=== PATIENT | female | born 1990 | race Hispanic/Latino ===

== ENCOUNTER 2017-03-01 07:24 | Inpatient (IN) | payer OTHER ==
[2017-03-01] MEDS: Lactated Ringer's 2,000 ML IV ONE ×2 (08:20→09:25)
[2017-03-01] MEDS ORDERED: ceFAZolin 1 GM in Sodium Chloride 0.9% 100 ML IVPB ONE (08:23)
[2017-03-01 08:24] VITALS: BMI 25.8
[2017-03-01 08:40] LABS: BASO # 0.1 K/uL (0.0-0.2); EOS # 0.1 K/uL (0.0-0.7); EOS % 0.8 % (0.0-4.0); HEMATOCRIT 38.5 % (34.0-47.0); LYMPH # 1.6 K/uL (1.0-4.3); LYMPH % 14.6 % (20.0-40.0); MEAN CELL VOLUME 90.3 fl (81.0-99.0); MEAN CORPUSCULAR HEMOGLOBIN 29.6 pg (27.0-31.0); MEAN CORPUSCULAR HGB CONC 32.8 g/dL (33.0-37.0); MEAN PLATELET VOLUME 9.9 fl (7.2-11.7); MONO # 0.8 K/uL (0.0-0.8); MONO % 7.4 % (0.0-10.0); NEUT # 8.2 K/uL (1.8-7.0); NEUT % 76.2 % (50.0-75.0); RED CELL DISTRIBUTION WIDTH 14.8 % (11.5-14.5); WHITE BLOOD COUNT 10.7 K/uL (4.8-10.8)
[2017-03-01] MEDS ORDERED: Oxytocin 30 units/LR 500ML 500 ML IV ONE ×2 (09:10→13:32)
--- NOTE | 2017-03-01 10:24 | HP ---
HISTORY OF PRESENT ILLNESS: This is a 26-year-old -0-0-1 at 38 weeks and 5 days today with an EDC of 03/10/2017 by LMP, who presents to labor and delivery in labor with a history of a previous section; declines . The patient reports that she had painful contractions that started at 2 a.m. She denies leaking of fluid and reports a little blood. The patient reports positive movement. She had her care w/ [facility] with Drs. Zhu and Daryl. PAST MEDICAL HISTORY: Healthy. MEDICATIONS: vitamins. ALLERGIES: No known drug allergies. PAST SURGICAL HISTORY: x 1 on 05/2014 and she had a tonsillectomy in 1997. GYNECOLOGICAL HISTORY: Monthly periods. The patient denies any history of any STDs or any abnormal Pap smears. SOCIAL HISTORY: The patient denies tobacco, alcohol, and illicit drug use. FAMILY HISTORY: Noncontributory. OBSTETRICAL HISTORY: On 06/15/2014 the patient underwent a primary section of a female weighing 6 pounds due to failure to descend. LABS: Varicella zoster virus is low; nonimmune. Blood type is A positive. Antibody screen negative. HIV nonreactive. Hemoglobin electrophoresis is within normal limits. Urine culture was no growth. Syphilis is nonreactive. Rubella is positive. Hepatitis B surface antigen is negative. Panorama, done on 08/29/2016, is low risk and male infant. On 09/28, maternal serum alpha fetoprotein which was negative. On 12/20/2016 glucose was 102, HIV was nonreactive and her RPR was nonreactive. On 02/14/2017 , group B strep was negative. PHYSICAL EXAMINATION: VITAL SIGNS: Afebrile. Vital signs stable. GENERAL: The patient appears uncomfortable, having contractions. ABDOMEN: Soft, nontender, gravid. EXTREMITIES: Nontender. VAGINAL: 4-5 cm, 75% effaced and -1 station around 8:45 per the RN. External monitoring: the baseline is about 120s with moderate variability and positive accelerations. Tocodynamometer: Contractions about every 2 minutes ASSESSMENT AND PLAN: This is a 26-year-old 2, para 1, 0-0-1 at 38 weeks and 5 days with a history of a previous section, in labor; declines vaginal after section. The plan is a repeat section. The plan was discussed with the patient and her . Risks, benefits, alternatives were discussed with the patient. Consents were signed and all questions were answered. Silvana Cherry MD cc: [id number] TT: 03/01/2017 10:23:09 marcellus HARRIS
[2017-03-01] MEDS ORDERED: Oxycodone/Acetaminophen 5/325 mg Tab PO PRN ×3 (11:43→14:21)
[2017-03-01] MEDS ORDERED: DiphenhydrAMINE 50 mg/ml Inj IVP PRN ×2 (11:44→14:21)
[2017-03-01] MEDS ORDERED: Naloxone 0.4 mg/ml Inj (Adult) IVP PRN ×2 (11:44→14:21)
--- NOTE | 2017-03-01 11:55 | OBDS ---
DELIVERY PERSONNEL Delivery Doctor: Yvette Cherry MD Rn Ccu: Mary Elliott RN Anesthesiologist: Khadra Peralta MD MATERNAL INFORMATION Delivery Anesthesia: Spinal Medications in Delivery: 30 units pitocin in 500 ml lr Estimated Blood Loss (ml): 700 Placenta Cultured: No Maternal Complications: None Provider Comments: Pre-op dx: 26 yo at 38+5 w/ previous c/s, in labor, declined Post-op dx: Same Procedure: Repeat low transverse ceasrean section Surgeon: Jo Ann Hackler Doll Wigs: Dr. Inman, the hospitalist Anesthesiologist: Dr. Peralta Anesthesia: Spinal Findings: Viable male infant delivered though clear fluid at 10:37am, Apgars 9 and 9, Wt 9#1, 4105 gms, nl appearing uterus, tubes, and ovaries EBL: 700 mL ComplicationsL: None LABOR SUMMARY EDC: 03/10/2017 00:00 No. Babies in Womb: 1 Attempted: No Labor Anesthesia: Intrathecal LABOR INFORMATION Reason for Induction: Not Applicable Onset of Labor: 03/01/2017 02:00 Oxytocin: N/A Group B Beta Strep: Negative Antibiotics # of Doses: 1 Antibiotics Time of Last Dose: 1010 Steroids Given: None Reason Steroids Not Administered: Not Applicable MEMBRANES Membranes Rupture Method: Artificial Rupture of Membranes: 03/01/2017 10:36 Length of Rupture (hrs): 0.02 Amniotic Fluid Color: Clear Amniotic Fluid Amount: Moderate Amniotic Fluid Odor: Normal STAGES OF LABOR Stage 3 hrs: 0 Stage 3 min: 1 Total Time in Labor hrs: 8 Total Time in Labor min: 38 VAGINAL DELIVERY Episiotomy: None Laceration Extension: N/A Laceration Type: None Laceration Repair: Not Applicable Sponge Count Correct: N/A Sharps Count Correct: N/A CSECTION DELIVERY Primary Indication: Repeat Elective Secondary Indication: Other Other Secondary Indication: Labor CSection Urgency: Elective CSection Incidence: Repeat Labor: Labor Elective: Elective CSection Incision: Lower Uterine Transverse BABY A INFORMATION Delivery Date/Time: 03/01/2017 10:37 Method of Delivery: Born in Route : No : N/A Forceps: N/A Vacuum Extraction: N/A Shoulder Dystocia : No SHOULDER DYSTOCIA BABY A Delivery Date/Time: 03/01/2017 10:37 PRESENTATION/POSITION BABY A Presentation: Cephalic Cephalic Presentation: Vertex Vertex Position: Left Occipital Anterior Breech Presentation: N/A PLACENTA INFORMATION BABY A Placenta Delivery Time : 03/01/2017 10:38 Placenta Method of Delivery: Manual Removal Placenta Status: Delivered SCORES BABY A Heart Rate 1 min: >100 bpm Resp Effort 1 min: Good Cry Reflex Irritability 1 min: Cough or Sneeze or Pulls Away Muscle Tone 1 min: Active Motion Color 1 min: Body [place], Extremities Blue SCORE 1 MIN: 9 Heart Rate 5 min: >100 bpm Resp Effort 5 min: Good Cry Reflex Irritability 5 min: Cough or Sneeze or Pulls Away Muscle Tone 5 min: Active Motion Color 5 min: Body [place], Extremities Blue SCORE 5 MIN: 9 INFANT INFORMATION BABY A Gestational Age at Delivery: 38.5 Gestational Status: Term Infant Outcome : Liveborn Infant Condition : Stable Sex: Male IDENTIFICATION/MEDS BABY A ID Band Number: [id number] ID Band Location: Left Leg; Left Arm WEIGHT/LENGTH BABY A Infant Birthweight (gms): 4105 Infant Weight (lb): 9 Infant Weight (oz): 1 Infant Length Inches: 22.00 Length cms: 55.9 CORD INFORMATION BABY A No. Cord Vessels: 3 Nuchal Cord : N/A Cord Blood Taken: Yes Infant Suction: Mouth; Nose ASSESSMENT BABY A Complications: None Physical Findings at Delivery: Within Normal Limits Infant Respirations: Appears Normal Board Certified Behavioral Analyst/ALS Called : No Infant Care By: Dr Garcia/Alie Ramirez Transferred To: [facility]
--- NOTE | 2017-03-01 12:24 | OP ---
PROCEDURE DATE: 03/01/2017 PREOPERATIVE DIAGNOSIS: This is a 26-year-old D2G1-3-8-9 at 38 weeks and 5 days with a previous section in labor, declines vaginal after . POSTOPERATIVE DIAGNOSIS: This is a 26-year-old J3U3-4-4-7 at 38 weeks and 5 days with a previous section in labor, declines vaginal after . PROCEDURE: A repeat low transverse section. SURGEON: Silvana Cherry MD. REPAIRER VENEER SHEET: Dr. Candi Inman, the hospitalist. Dr. Inman was the surgical aides teacher and participated in the surgery for the entire duration of the case. She helped create exposure. She also helped maintain hemostasis, operated throughout the case on the side of the patient that was across from her and assisted in the delivery of the infant by applying fundal pressure. This case could not have been completed without her assistance. ANESTHESIOLOGIST: Ernesto Peralta DO. ANESTHESIA: Spinal. FINDINGS: A viable male infant delivered through clear fluid at 10:37 a.m. Apgars were 9 and 9 at 1 and 5 minutes respectively. The weight was 9 pounds 1 ounce or 4105 grams. Normal-appearing uterus, tubes, and ovaries. ESTIMATED BLOOD LOSS : 700 mL. DESCRIPTION OF PROCEDURE: The patient was taken to the operating room where spinal anesthesia was placed. A Cunha was placed in the bladder. She was then prepped and draped in normal sterile fashion in the dorsal supine position with a leftward tilt. A time-out was done. The spinal was tested and found to be adequate. Initially, the keloid scar from the previous section was cut out using a knife followed by a Bovie, as it was held up with an Allis clamp. The incision was then carried through to the underlying layer of fascia with the Bovie. The fascia was incised in the midline, and the incision was extended laterally with the Bovie over a Lety. The inferior aspect of the fascial incision was then grasped with Dany clamps, elevated, and the underlying rectus muscles were dissected off bluntly and with the Bovie. Attention was then turned to the superior aspect of this incision, which in a similar fashion was grasped, tented up with the Dany clamps, and the rectus muscles were dissected off bluntly and with the Bovie. The rectus muscles were then in the midline. The peritoneum was incidentally entered as the rectus muscles were dissected off the fascia. The peritoneal incision was then extended superiorly and inferiorly with good visualization of the bladder. The bladder blade was then inserted, and the vesicouterine peritoneum was identified , grasped with the pickups and entered sharply with Metzenbaum scissors. This incision was then extended laterally, and the bladder flap was created digitally. The bladder blade was then reinserted, and lower uterine segment was incised in transverse fashion with the scalpel. The uterine incision was then extended in a cephalocaudad direction digitally. The bladder blade was removed, and the infant's head delivered atraumatically. The nose and mouth were suctioned with bulb suction. The cord was clamped and cut. The infant was handed off to the waiting molded candles wicker. Cord blood was then collected. The placenta was then delivered, as the uterus was massaged. The uterus was then exteriorized and cleared of all clots and debris with a dry sponge curettage. The uterine incision was repaired with 0 Vicryl in a running locked fashion. A few interrupted stitches were then placed in the incision and for hemostasis. The abdomen was then well- irrigated. The uterus was then returned to the abdomen. The gutters were cleared of all clots. The uterus incision was reexamined and found to be hemostatic. The peritoneum was then closed with 0 chromic. Two interrupted stitches of 0 chromic were then placed to reapproximate the pyramidalis muscle. The fascia was then reapproximated with 0 Vicryl in a running fashion. Subcutaneous fat was well-irrigated. The Bovie was applied to small bleeders. The space of the fat was then closed with a running stitch of 2-0 plain gut. The skin was then closed in a subcuticular fashion using 4-0 Monocryl. The patient tolerated the procedure well. Sponge, lap, and needle counts were correct. The patient received 1 gram of Ancef prior to the procedure. The patient was taken to the recovery room in stable condition. Silvana Cherry MD cc: [id number] TT: 03/01/2017 12:24:04 [facility] # [id number] jn MTDD
[2017-03-01] MEDS ORDERED: Lactated Ringer's 1,000 ML IV SCH (13:45)
[2017-03-01] MEDS ORDERED: Simethicone 80 mg Chewtab PO SCH (16:00)
[2017-03-01] MEDS: Lactated Ringer's 1,000 ML IV SCH (16:30)
[2017-03-01] MEDS: Simethicone 80 mg Chewtab PO SCH ×2 (16:57→22:12)
[2017-03-02] MEDS: Lactated Ringer's 1,000 ML IV SCH ×2 (02:08→14:00)
[2017-03-02] MEDS: Simethicone 80 mg Chewtab PO SCH ×5 (04:57→22:29)
[2017-03-02 08:23] LABS: BASO % 0.4 % (0.0-2.0); EOS # 0.1 K/uL (0.0-0.7); EOS % 0.6 % (0.0-4.0); HEMATOCRIT 35.4 % (34.0-47.0); LYMPH # 1.2 K/uL (1.0-4.3); LYMPH % 8.9 % (20.0-40.0); MEAN CELL VOLUME 90.2 fl (81.0-99.0); MEAN CORPUSCULAR HEMOGLOBIN 29.5 pg (27.0-31.0); MEAN CORPUSCULAR HGB CONC 32.7 g/dL (33.0-37.0); MEAN PLATELET VOLUME 9.7 fl (7.2-11.7); MONO # 1.1 K/uL (0.0-0.8); NEUT # 11.3 K/uL (1.8-7.0); NEUT % 82.1 % (50.0-75.0); NRBC % 0.1 % (0.0-0.0); PLATELET COUNT 159 K/uL (130-400); RED CELL DISTRIBUTION WIDTH 14.8 % (11.5-14.5); WHITE BLOOD COUNT 13.7 K/uL (4.8-10.8)
[2017-03-02 09:31] LABS: NEUTROPHIL 87 % (42-75); TOTAL CELLS COUNTED 100
[2017-03-02 09:32] LABS: LARGE PLATELETS PRESENT
[2017-03-02 10:36] VITALS: BP 104/51; PULSE 73; RESP 18; TEMP 97.5
[2017-03-02] MEDS ORDERED: Hydrocortisone-Pramoxine 1%-1% Foam(10 gm) TOP PRN (13:00)
--- NOTE | 2017-03-02 15:33 | OBPPN ---
Datetime: 03/02/2017 15:29 PP Pain Prov: Within normal limits PP Nausea Prov: Denies PP Flatus Prov: Yes PP Breasts Prov: Not Done PP Heart Prov: Normal PP Lungs Prov: Normal PP Abdomen/Uterus Prov: Normal PP Lochia Prov: Not Done PP Vulva/Perineum Prov: Not Done PP CVA Tenderness Prov: Normal PP Extremities Prov: Normal PP C/S Incision Prov: Normal PP Impression Prov: Normal progression PP Plan Prov: Continue present management PP Progress Note Prov: Patient has no complaints pain well-controlled voiding without difficulty kirt erating diet Vital signs stable afebrile Uterus firm below the umbilicus Incision clean dry and intact Postoperative day #2 Ambulating, analgesia, regular diet, anticipate discharge in a.m. Vital Signs Provider PP: Reviewed
[2017-03-02] MEDS ORDERED: Lansinoh for Breast Feeding Mothers TP ONE (17:57)
[2017-03-02] MEDS: Oxycodone/Acetaminophen 5/325 mg Tab PO PRN (20:20)
[2017-03-03] MEDS: Oxycodone/Acetaminophen 5/325 mg Tab PO PRN ×4 (03:30→21:54)
[2017-03-03] MEDS: Simethicone 80 mg Chewtab PO SCH ×4 (03:37→21:52)
--- NOTE | 2017-03-03 08:02 | OBPPN ---
Datetime: 03/03/2017 08:00 PP Pain Prov: Within normal limits PP Nausea Prov: Denies PP Flatus Prov: Yes PP Breasts Prov: Not Done PP Heart Prov: Normal PP Lungs Prov: Normal PP Abdomen/Uterus Prov: Not Done PP Lochia Prov: Normal PP Vulva/Perineum Prov: Normal PP CVA Tenderness Prov: Normal PP Extremities Prov: Normal PP C/S Incision Prov: Normal PP Progress Prov: Normal PP Impression Prov: Normal progression PP Plan Prov: Continue present management PP Progress Note Prov: The patient did well postoperative day 2 ambulating tolerating diet minimal l ochia pain well-controlled Vital signs stable afebrile Uterus firm below the umbilicus Incision clean dry and intact Postoperative day 2 Ambulate Regular diet Anticipate discharge in a.m. Vital Signs Provider PP: Reviewed
[2017-03-03] MEDS ORDERED: Lansinoh for Breast Feeding Mothers TP ONE (10:33)
[2017-03-04] MEDS: Simethicone 80 mg Chewtab PO SCH (08:06)
--- NOTE | 2017-03-04 10:29 | OBDCSUM ---
Datetime: 03/04/2017 09:26 Discharged to, Provider: Home Follow up at, Provider: Aaron Joshi Instr Activity: Normal activity; May be up to bathroom; May be up for meals; May Shower Disch Instr Diet: Regular Discharge Instructions, Provider: Routine instructions given Discharge Diagnosis, Provider: Term Delivered Discharge Time: 03/04/2017 11:30 Follow up in weeks, Provider: in one week Disch Referrals: None Contraception discussed, Prov: Yes Disch Activity Restrictions: No lifting; No sexual activity; Nothing in vagina - [place], tampon s, douche Discharge Comment, Provider: Patient did well ambulating tolerating diet pain well-controlled report s minimal lochia and voiding without difficulty Vital signs stable afebrile Uterus firm below the umbilicus Incision clean dry and intact Extremities no Homans Postoperative day #3 Discharged home Prescription for Percocet and Motrin and Colace provided Patient to follow-up in one week Nothing per vagina Contraception after Delivery: Undecided
--- NOTE | 2017-03-04 10:30 | OBPPN ---
Datetime: 03/04/2017 10:28 PP Pain Prov: Within normal limits PP Nausea Prov: Denies PP Flatus Prov: Yes PP Breasts Prov: Not Done PP Heart Prov: Normal PP Lungs Prov: Normal PP Abdomen/Uterus Prov: Normal PP Lochia Prov: Not Done PP Vulva/Perineum Prov: Not Done PP CVA Tenderness Prov: Normal PP Extremities Prov: Normal PP C/S Incision Prov: Normal PP Impression Prov: Normal progression PP Plan Prov: Discharge PP Progress Note Prov: Patient did well ambulating tolerating diet pain well-controlled reports mini mal lochia and voiding without difficulty Vital signs stable afebrile Uterus firm below the umbilicus Incision clean dry and intact Extremities no Homans Postoperative day #3 Discharged home Prescription for Percocet and Motrin and Colace provided Patient to follow-up in one week Nothing per vagina Vital Signs Provider PP: Reviewed
== END 2017-03-04 13:25 | disposition home or self-care (01) | DRG 766 ==
LOC: H.EROB2 07:24 → H.L&D 08:23 → H.OB/GYN 14:15
PROVIDERS: ADMIT Obstetrics & Gynecology Gynecology; ATTEND Obstetrics & Gynecology Gynecology
PROC: 10D00Z1 Extraction of Products of Conception, Low, Open Approach (ICD-10-PCS; principal; 2017-03-01)
PROC: 4A1HXCZ Monitoring of Products of Conception, Cardiac Rate, External Approach (ICD-10-PCS; 2017-03-01)
DX: O34.211 Maternal care for low transverse scar from previous cesarean delivery (principal); N85.8 Other specified noninflammatory disorders of uterus; Z37.0 Single live birth; Z3A.38 38 weeks gestation of pregnancy